=== PATIENT | female | born 1995 | race Caucasian/White ===

== ENCOUNTER 2019-05-18 14:16 | Emergency (ER) | payer OTHER ==
[~2019-05-18] VITALS: Ht 154 cm; Wt 68.1 kg
[2019-05-18] MEDS ORDERED: CLINDAMYCIN 150 MG (CLEOCIN) CAP PO ONE (14:30)
[2019-05-18] MEDS ORDERED: HYDROcodone/APAP 5 MG/325 MG (LORTAB) TAB PO ONE (14:30)
[2019-05-18] MEDS ORDERED: LIDOCAINE 1% INJ 20 ML 20 ML VIAL INJ ONE (14:30)
--- NOTE | 2019-05-18 14:35 | ED Upper Extremity ---
General Chief Complaint: Trauma-Non Activation Stated Complaint: SCREWDRIVER IN R ARM Nursing Triage Note: screw hog driver in R arm Source: patient Exam Limitations: no limitations History of Present Illness Date Seen by Provider: May 18, 2019 Time Seen by Provider: 14:33 Initial Comments To ER with reports of a screwdriver in the right arm. She dropped somehow punctured the skin while at work at [employer] just prior to arrival. She had a te tanus shot within the past 4-5 months. Does report some cold sensation to the pinky and ring finger of the right hand. Location Injury Occurred: [place], [place] Onset: just prior to arrival, yesterday Severity: moderate Pain/Injury Location: right forearm Method of Injury: direct blow Modifying Factors: Worse With Movement Allergies and Home Medications Allergies Coded Allergies: Penicillins (Verified Allergy, Unknown, 05/18/19) Sulfa (Sulfonamide Antibiotics) (Verified Allergy, Unknown, 05/18/19) cefaclor (Verified Allergy, Unknown, 05/18/19) Home Medications Doxycycline Hyclate 100 Mg Tablet, 100 MG PO BID Prescribed by: CHIO DOMINGUEZ on 05/18/19 1458 Hydrocodone/Acetaminophen 1 Each Tablet, 1 TAB PO Q4-6HR Prescribed by: CHIO DOMINGUEZ on 05/18/19 1458 Patient Home Medication List Home Medication List Reviewed: Yes Review of Systems Constitutional: see HPI EENTM: see HPI Respiratory: no symptoms reported Cardiovascular: no symptoms reported Genitourinary: no symptoms reported Musculoskeletal: no symptoms reported Skin: no symptoms reported Psychiatric/Neurological: No Symptoms Reported Past Uxglxwo-Iloadc-Cymfuf Hx Patient Social History Alcohol Use: Denies Use Recreational Drug Use: No Smoking Status: Current Everyday Smoker Type Used: Cigarettes 2nd Hand Smoke Exposure: Yes Recent Foreign Travel: No Contact w/Someone Who Travel: No Recent Hopitalizations: No Immunizations Up To Date Tetanus Booster (TDap): Less than 5yrs Seasonal Allergies Seasonal Allergies: Yes Past Medical History Surgeries: No Respiratory: No Cardiac: No Neurological: No Genitourinary: No Gastrointestinal: No Musculoskeletal: No Endocrine: No HEENT: No Cancer: No Psychosocial: No Integumentary: No Blood Disorders: No Physical Exam Vital Signs Vital Signs - First Documented 05/18/19 14:20 Temp 36.7 Pulse 90 Resp 18 B/P (MAP) 109/86 (94) Capillary Refill : Height, Weight, BMI Height: '" Weight: lbs. oz. kg; BMI Method: General Appearance: WD/WN, no apparent distress Respiratory: no respiratory distress, no accessory muscle use Shoulder: normal inspection, non-tender Elbow/Forearm: Right, pain (to the volar surface ulnar side distal right forearm there is a screwdriver still in place puncturing the skin. Distal to this I'm able to Doppler and ulnar pulse and also able to Doppler a radial pulse. Limited sensation to the ring finger and pinky finger and the ulnar nerve distribution, able to move these fingers however and brisk capillary refill is fingertips.) Wrist: Yes normal inspection, Yes non-tender Hand: normal inspection, non-tender Neurologic/Tendon: normal sensation, normal motor functions Neurologic/Psychiatric: alert, normal mood/affect, oriented x 3 Skin: normal color, warm/dry Progress/Results/Core Measures Results/Orders My Orders Orders - CHIO DOMINGUEZ APRN Forearm, Right, 2 Views (05/18/19 14:26) Clindamycin Capsule (Cleocin Capsule) (05/18/19 14:30) Hydrocodone/Apap 5/325 Tablet (Lortab 5 (05/18/19 14:30) Lidocaine 1% Inj 20 Ml (Xylocaine 1% Inj (05/18/19 14:30) Medications Given in ED Current Medications Medications Dose Ordered Sig/Omar Route Start Time Stop Time Status Last Admin Dose Admin Acetaminophen/ Hydrocodone Bitart 1 tab ONCE ONCE PO 05/18/19 14:30 05/18/19 14:31 DC 05/18/19 14:40 1 TAB Clindamycin HCl 300 mg ONCE ONCE PO 05/18/19 14:30 05/18/19 14:31 DC 05/18/19 14:40 300 MG Lidocaine HCl 2.1 ml ONCE ONCE INJ 05/18/19 14:30 05/18/19 14:31 DC 05/18/19 14:40 2.1 ML Vital Signs/I&O 05/18/19 14:20 Temp 36.7 Pulse 90 Resp 18 B/P (MAP) 109/86 (94) Departure Communication (Admissions) 6190-wound was anesthetized with 1% lidocaine without epinephrine, needle was running parallel to the shaft of the screw hog driver. 3 cc of lidocaine was infiltrated. X-rays were obtained, screw hog driver was removed by simply pulling on it, minimal bleeding from the wound. After the screwdriver was removed both the ulnar and radial arteries were occluded, fist was clenched to extravasate the blood, ulnar artery was released while maintaining the radial artery occluded and there was brisk capillary refill with only arterial flow from the ulnar artery. She is able to fully flex her fist. Pt placed in a [facility] splint Impression Primary Impression: Injury of right ulnar nerve Qualified Codes: S54.01XA - Injury of ulnar nerve at forearm level, right arm, initial encounter Additional Impression: Foreign body in right forearm Qualified Codes: S50.851A - Superficial foreign body of right forearm, initial encounter Disposition: HOME, SELF-CARE Condition: Stable Departure-Patient Inst. Decision time for Depature: 14:56 Referrals: NO,LOCAL PHYSICIAN (PCP) Primary Care Physician PURNIMA CARDONA MD Patient Instructions: NO INSTRUCTIONS GIVEN, Wound Care Add. Discharge Instructions: 1. Return to ER for any concerns 2. Take the antibiotic twice daily as directed. Follow-up with Dr. Cardona from orthopedics, call today for an appointment time.. Pain medication as directed. No use of right arm until released by occupational health or orthopedics. Wear the splint at all times until then, you may take it off to shower allowing water run over the wound gently starting today. However do not soak in water such as hot tub, bath tub, swimming pool. All discharge instructions reviewed with patient and/or family. Voiced understanding. Scripts Doxycycline Hyclate (Doxycycline Hyclate) 100 Mg Tablet 100 MG PO BID, #14 TAB 0 Refills Prov: CHIO DOMINGUEZ APRN 05/18/19 Hydrocodone/Acetaminophen (Ponderosa 5-325 Tablet) 1 Each Tablet 1 TAB PO Q4-6HR for Pain MDD 10 TABS for 7 Days, #14 TAB Prov: CHIO DOMINGUEZ APRN 05/18/19 CHIO DOMINGUEZ APRN May 18, 2019 14:35
--- NOTE | 2019-05-18 14:56 | Diagnostic Imaging Report ---
INDICATION: Right forearm injury. EXAM: AP and lateral views of the right forearm were obtained at 2:38 PM. FINDINGS: There is no acute fracture or acute bone abnormality. There is a metallic foreign body in the soft tissues of the distal forearm, with the tip adjacent to the ulna, with no associated fracture. IMPRESSION: No acute fracture visualized. Metallic foreign body compatible with screwdriver in the distal soft tissues of the forearm. Dictated by: Dictated on workstation # [id number]
[2019-05-18] MEDS ORDERED: DOXY100T2 PO (14:58)
[2019-05-18] MEDS ORDERED: HYDR-4226 PO (14:58)
[2019-05-18 15:11] VITALS: BP 109/86
== END 2019-05-18 15:11 | disposition home or self-care (01) ==
LOC: ER 14:19
DX: S54.01XA Injury of ulnar nerve at forearm level, right arm, initial encounter (principal); S51.841A Puncture wound with foreign body of right forearm, initial encounter; F17.210 Nicotine dependence, cigarettes, uncomplicated; Z88.0 Allergy status to penicillin; Z88.2 Allergy status to sulfonamides; Z88.1 Allergy status to other antibiotic agents; W27.0XXA Contact with workbench tool, initial encounter; Y92.59 Other trade areas as the place of occurrence of the external cause
CPT/HCPCS: 73090

== ENCOUNTER 2019-12-06 09:17 | Emergency (ER) | payer SELFPAY ==
[~2019-12-06] VITALS: Ht 154.9 cm; Wt 73.4 kg
[~2019-12-06 09:17] MED LIST: DOXY100T2 PO; HYDR-4226 PO
--- OUTSIDE RECORDS SUMMARY | 2019-12-06 09:36 | XMS REPORT | Continuity of Care Document ---
Author Organization Unknown Address Unknown Phone Unavailable Allergies Active Description Code Type Severity Reaction Onset Reported/Identified Relationship to Patient Clinical Status Yes cefaclor [id number] Drug Allergy Unknown N/A 05/18/2019 Yes Penicillins [id number] Drug Aller gy Unknown N/A 05/18/2019 Yes Sulfa (Sulfonamide Antibiotics) [id number] Drug Allergy Unknown N/A 019 Medications There is no data. Problems Date Dx Coded Attending Type Code Diagnosis Diagnosed By 05/22/2019 CHIO DOMINGUEZ APRN Ot F17.210 NICOTINE DEPENDENCE, CIGARETTES, UNCOMPL 05/22/2019 CHIO DOMINGUEZ APRN Ot M79.601 PAIN IN RIGHT ARM 05/22/2019 CHIO DOMINGUEZ APRN Ot S51.841A PUNCTURE WOUND W FOREIGN BODY OF RIGHT F 05/22/2019 CHIO DOMINGUEZ APRN Ot S54.01XA INJURY OF ULNAR NERVE AT FOREARM LEVEL, 05/22/2019 CHIO DOMINGUEZ APRN Ot W27.0XXA CONTACT WITH [email or web address] TOOL, INITIAL ENC 05/22/2019 CHIO DOMINGUEZ APRN Ot Y92.[address] 05/22/2019 CHIO DOMINGUEZ APRN Ot Z88 .0 ALLERGY STATUS TO PENICILLIN 05/22/2019 CHIO DOMINGUEZ APRN Ot Z88 .1 ALLERGY STATUS TO OTHER ANTIBIOTIC AGENT 05/22/2019 CHIO DOMINGUEZ APRN Ot Z88 .2 ALLERGY STATUS TO SULFONAMIDES STATUS Procedures There is no data. Results There is no data. Encounters ACCT No. Visit Date/Time Discharge Status Pt. Type Provider Facility Loc./Unit Complaint [id number] 05/18/2019 14:19:00 019 15:11:00 DIS Outpatient CHIO DOMINGUEZ APRN Via [facility] ER SCREWDRIVER IN R ARM
[2019-12-06] MEDS ORDERED: HYDR-700 PO (10:33)
[2019-12-06] MEDS ORDERED: PRD20T PO (10:33)
--- NOTE | 2019-12-06 10:33 | ED Integumentary General ---
General Chief Complaint: Skin/Wound Problems Stated Complaint: RASH Nursing Triage Note: AMB TO ROOM C/O RASH FOR 1 WEEK RASH IS ITCHES AND DU. NOTICED AFTER SHE CHANGE HER LAUNDRY SOAP Source: patient Exam Limitations: no limitations History of Present Illness Date Seen by Provider: December 06, 2019 Time Seen by Provider: 10:30 Initial Comments To ER with an itchy rash to the upper arms and chest for about a week. She switched to a new laundry soap at the onset of this but has switched back about 4 days ago, the rash persists. Timing/Duration: just prior to arrival Severity: moderate Location: torso Possible Cause: exposure to allergen Associated Symptoms: rash Allergies and Home Medications Allergies Coded Allergies: Penicillins (Verified Allergy, Unknown, 05/18/19) Sulfa (Sulfonamide Antibiotics) (Verified Allergy, Unknown, 05/18/19) cefaclor (Verified Allergy, Unknown, 05/18/19) Home Medications Doxycycline Hyclate 100 Mg Tablet, 100 MG PO BID Prescribed by: CHIO DOMINGUEZ on 05/18/19 1458 Hydrocodone/Acetaminophen 1 Each Tablet, 1 TAB PO Q4-6HR Prescribed by: CHIO DOMINGUEZ on 05/18/19 1458 Patient Home Medication List Home Medication List Reviewed: Yes Review of Systems Review of Systems Constitutional: see HPI EENTM: see HPI Respiratory: no symptoms reported Cardiovascular: no symptoms reported Genitourinary: no symptoms reported Musculoskeletal: no symptoms reported Skin: see HPI, pruritus, rash Psychiatric/Neurological: No Symptoms Reported Endocrine: No Symptoms Reported Past Rcovagt-Uqqank-Lvwtjt Hx Patient Social History Alcohol Use: Denies Use Recreational Drug Use: No Smoking Status: Current Everyday Smoker Type Used: Cigarettes 2nd Hand Smoke Exposure: Yes Recent Foreign Travel: No Contact w/Someone Who Travel: No Recent Infectious Disease Expo: No Recent Hopitalizations: No Immunizations Up To Date Tetanus Booster (TDap): Less than 5yrs Seasonal Allergies Seasonal Allergies: Yes Past Medical History Surgeries: No Respiratory: No Cardiac: No Neurological: No Last Menstrual Period: Nov 22, 2019 Genitourinary: No Gastrointestinal: No Musculoskeletal: No Endocrine: No HEENT: No Cancer: No Psychosocial: No Integumentary: No Blood Disorders: No Physical Exam Vital Signs Vital Signs - First Documented 12/06/19 09:20 Temp 36.9 Pulse 90 Resp 18 B/P (MAP) 116/72 (87) Pulse Ox 98 O2 Delivery Room Air Capillary Refill : Less Than 3 Seconds General Appearance: WD/WN, no apparent distress HEENT: PERRL/EOMI, normal ENT inspection Neck: non-tender, full range of motion Respiratory: no respiratory distress, no accessory muscle use Neurologic/Psychiatric: alert, normal mood/affect, oriented x 3 Skin: normal color, warm/dry Skin Problem Location: other (erythematous maculopapular rash to the upper chest) Skin Problem Character: abscess Progress/Results/Core Measures Results/Orders Vital Signs/I&O 12/06/19 09:20 Temp 36.9 Pulse 90 Resp 18 B/P (MAP) 116/72 (87) Pulse Ox 98 O2 Delivery Room Air Blood Pressure Mean: 87 Departure Impression Primary Impression: Rash and nonspecific skin eruption Disposition: 01 HOME, SELF-CARE Condition: Stable Departure-Patient Inst. Decision time for Depature: 10:32 Referrals: NO,LOCAL PHYSICIAN (PCP/Family) Primary Care Physician Patient Instructions: Skin Rash (DC) Add. Discharge Instructions: 1. Steroids as directed 2. Follow-up with your doctor next week 3. All discharge instructions reviewed with patient and/or family. Voiced understanding. Scripts Hydroxyzine HCl (Hydroxyzine HCl) 25 Mg Tablet 25 MG PO Q4H PRN for ITCHING, #14 TAB Prov: CHIO DOMINGUEZ APRN 12/06/19 Prednisone (Prednisone) 20 Mg Tab 40 MG PO DAILY, #8 TAB 0 Refills Prov: CHIO DOMINGUEZ APRN 12/06/19 CHIO DOMINGUEZ APRN December 06, 2019 10:33
[2019-12-06 10:35] VITALS: BP 116/72
== END 2019-12-06 10:35 | disposition home or self-care (01) ==
LOC: EDUNIT# 09:17 → ER 09:19
DX: R21 Rash and other nonspecific skin eruption (principal); F17.210 Nicotine dependence, cigarettes, uncomplicated; Z88.0 Allergy status to penicillin; Z88.2 Allergy status to sulfonamides; Z88.1 Allergy status to other antibiotic agents
CPT/HCPCS: 99282

== ENCOUNTER 2020-02-21 10:05 | Emergency (ER) | payer SELFPAY ==
[~2020-02-21 10:05] MED LIST changes: +HYDR-700 PO; +PRD20T PO
--- OUTSIDE RECORDS SUMMARY | 2020-02-21 10:46 | XMS REPORT | Continuity of Care Document ---
Author Organization Unknown Address Unknown Phone Unavailable Allergies Active Description Code Type Severity Reaction Onset Reported/Identified Relationship to Patient Clinical Status Yes cefaclor [id number] Drug Allergy Unknown N/A 05/18/2019 Yes Penicillins [id number] Drug Aller gy Unknown N/A 05/18/2019 Yes Sulfa (Sulfonamide Antibiotics) [id number] 0491 Drug Allergy Unknown N/A 019 Medications There is no data. Problems Date Dx Coded Attending Type Code Diagnosis Diagnosed By 05/18/2019 CHIO DOMINGUEZ APRN Ot F17.210 NICOTINE DEPENDENCE, CIGARETTES, UNCOMPL 05/18/2019 CHIO DOMINGUEZ APRN Ot M79.601 PAIN IN RIGHT ARM 05/18/2019 CHIO DOMINGUEZ APRN Ot S51.841A PUNCTURE WOUND W FOREIGN BODY OF RIGHT F 05/18/2019 CHIO DOMINGUEZ APRN Ot S54.01XA INJURY OF ULNAR NERVE AT FOREARM LEVEL, 05/18/2019 CHIO DOMINGUEZ APRN Ot W27.0XXA CONTACT WITH [employer], INITIAL ENC 05/18/2019 CHIO DOMINGUEZ APRN Ot Y92.[address] 05/18/2019 CHIO DOMINGUEZ APRN Ot Z88 .0 ALLERGY STATUS TO PENICILLIN 05/18/2019 CHIO DOMINGUEZ APRN Ot Z88 .1 ALLERGY STATUS TO OTHER ANTIBIOTIC AGENT 05/18/2019 CHIO DOMINGUEZ APRN Ot Z88 .2 ALLERGY STATUS TO SULFONAMIDES STATUS 05/22/2019 CHIO DOMINGUEZ APRN Ot F17.210 NICOTINE DEPENDENCE, CIGARETTES, UNCOMPL 05/22/2019 CHIO DOMINGUEZ APRN Ot M79.601 PAIN IN RIGHT ARM 05/22/2019 CHIO DOMINGUEZ APRN Ot S51.841A PUNCTURE WOUND W FOREIGN BODY OF RIGHT F 05/22/2019 CHIO DOMINGUEZ APRN Ot S54.01XA INJURY OF ULNAR NERVE AT FOREARM LEVEL, 05/22/2019 CHIO DOMINGUEZ APRN Ot W27.0XXA CONTACT WITH [employer] TOOL, INITIAL ENC 05/22/2019 CHIO DOMINGUEZ APRN Ot Y92.[address] 05/22/2019 CHIO DOMINGUEZ APRN Ot Z88 .0 ALLERGY STATUS TO PENICILLIN 05/22/2019 CHIO DOMINGUEZ APRN Ot Z88 .1 ALLERGY STATUS TO OTHER ANTIBIOTIC AGENT 05/22/2019 CHIO DOMINGUEZ APRN Ot Z88 .2 ALLERGY STATUS TO SULFONAMIDES STATUS 12/08/2019 CHIO DOMINGUEZ APRN Ot F17.210 NICOTINE DEPENDENCE, CIGARETTES, UNCOMPL 12/08/2019 CHIO DOMINGUEZ APRN Ot R21 RASH AND OTHER NONSPECIFIC SKIN ERUPTION 12/08/2019 CHIO DOMINGUEZ APRN Ot Z88 .0 ALLERGY STATUS TO PENICILLIN 12/08/2019 CHIO DOMINGUEZ APRN Ot Z88 .1 ALLERGY STATUS TO OTHER ANTIBIOTIC AGENT 12/08/2019 CHIO DOMINGUEZ APRN Ot Z88 .2 ALLERGY STATUS TO SULFONAMIDES STATUS Procedures There is no data. Results There is no data. Encounters ACCT No. Visit Date/Time Discharge Status Pt. Type Provider Facility Loc./Unit Complaint [id number] 12/06/2019 09:19:00 020 10:35:00 DIS Outpatient CHIO DOMINGUEZ APRN Via [facility] ER RASH [id number] 05/18/2019 14:19:00 019 15:11:00 DIS Emergency CHIO DOMINGUEZ APRN Via [facility] ER SCREWDRIVER IN R ARM
== END 2020-02-21 10:29 | disposition left against medical advice (07) ==
LOC: EDUNIT# 10:05 → ER 10:06
DX: R50.9 Fever, unspecified (principal); R05 Cough

== ENCOUNTER 2020-11-19 16:06 | Emergency (ER) | payer SELFPAY ==
[~2020-11-19] VITALS: Ht 157 cm; Wt 81.0 kg
[2020-11-19] MEDS ORDERED: NS IV 500 ML 500 ML ONE (16:47)
--- NOTE | 2020-11-19 16:48 | ED Headache ---
General Chief Complaint: Head/Cervical Problems Stated Complaint: MIGRAINE Nursing Triage Note: PT PRESENTS TO ED FOR MIGRAINE X'S 2 DAYS. PT REPORTS THAT IT GETS WORSE WITH NOISE AND HAS NOTICED SOME FLOATERS. PT REPORTS HX OF MIGRAINE ISSUES. Nursing Sepsis Screen: No Definite Risk Source: patient Exam Limitations: no limitations History of Present Illness Date Seen by Provider: Nov 19, 2020 Time Seen by Provider: 16:42 Initial Comments Patient is a 25-year-old female who presents to the emergency room by private vehicle tonight with a chief complaint of headache. Patient states she has had gradual onset of headache over the last 2 days. She states the headache is more severe than usual, she has not had a headache this bad in a couple of years. She states she had "black spots" in her visual ramos yesterday and last night. She states these have mostly resolved. She endorses nausea with a headache. She states she feels a little confused and is having a hard time getting the right words out when she wants to speak. She denies any unilateral numbness weakness or tingling of any of her extremities. She denies any recent fevers, chills, cough or congestion. No other GI or complaints. She states she tried to take some Tylenol this morning, 2 extra strength tablets but she did not have any relief of symptoms and decided to come to the emergency room for further treatment. She just ended her menstrual cycle. She states there is no way she could be . All other review of systems reviewed and negative except as stated above. Timing/Duration: 24 hours Severity/Quality: moderate, constant, pressure Location: global Prior Headaches/Recent Trauma: occasional headaches Modifying Factors: worse with exposure to light Associated Symptoms: confusion, nausea/vomiting Allergies and Home Medications Allergies Coded Allergies: Penicillins (Verified Allergy, Unknown, 05/18/19) Sulfa (Sulfonamide Antibiotics) (Verified Allergy, Unknown, 05/18/19) cefaclor (Verified Allergy, Unknown, 05/18/19) Home Medications Doxycycline Hyclate 100 Mg Tablet, 100 MG PO BID Prescribed by: CHIO DOMINGUEZ on 05/18/19 1458 Hydrocodone/Acetaminophen 1 Each Tablet, 1 TAB PO Q4-6HR Prescribed by: CHIO DOMINGUEZ on 05/18/19 1458 Hydroxyzine HCl 25 Mg Tablet, 25 MG PO Q4H PRN for ITCHING Prescribed by: CHIO DOMINGUEZ on 12/06/19 1033 Prednisone 20 Mg Tab, 40 MG PO DAILY Prescribed by: CHIO DOMINGUEZ on 12/06/19 1033 Patient Home Medication List Home Medication List Reviewed: Yes Review of Systems Review of Systems Constitutional: see HPI Eyes: Photophobia Ears, Nose, Mouth, Throat: no symptoms reported Respiratory: no symptoms reported Cardiovascular: no symptoms reported Gastrointestinal: nausea Genitourinary: no symptoms reported Musculoskeletal: no symptoms reported Psychiatric/Neurological: Headache All Other Systems Reviewed Negative Unless Noted: Yes Past Uvsjdcp-Yjqaij-Mkicso Hx Patient Social History Alcohol Use: Denies Use Smoking Status: Former Smoker Type Used: Cigarettes 2nd Hand Smoke Exposure: Yes Recent Infectious Disease Expo: No Recent Hopitalizations: No Immunizations Up To Date Tetanus Booster (TDap): Less than 5yrs Seasonal Allergies Seasonal Allergies: Yes Past Medical History Surgeries: No Respiratory: No Cardiac: No Neurological: No Genitourinary: No Gastrointestinal: No Musculoskeletal: No Endocrine: No HEENT: No Cancer: No Psychosocial: No Integumentary: No Blood Disorders: No Physical Exam Vital Signs Vital Signs - First Documented 11/19/20 16:25 Temp 36.2 Pulse 85 Resp 16 B/P (MAP) 111/73 (86) O2 Delivery Room Air Capillary Refill : Less Than 3 Seconds Height, Weight, BMI Height: '" Weight: lbs. oz. kg; 32.00 BMI Method: General Appearance: WD/WN HEENT: PERRL/EOMI, normal ENT inspection, TMs normal Neck: full range of motion, supple Cardiovascular: regular rate, rhythm Respiratory: lungs clear, normal breath sounds, no respiratory distress, no ac cessory muscle use Gastrointestinal: non tender, soft Back: normal inspection Extremities: non-tender, normal inspection, no pedal edema, no calf tenderness Psychiatric: alert, oriented x 3, depressed affect Crainal Nerves: normal hearing, normal speech, PERRL Coordination/Gait: normal finger to nose, negative Romberg's sign Motor/Sensory: no motor deficit, no sensory deficit, no pronator drift Skin: normal color, warm/dry Progress/Results/Core Measures Results/Orders My Orders Orders - JO ROGER MD Ed Iv/Invasive Line Start (11/19/20 16:50) Ketorolac Injection (Toradol Injection) (11/19/20 17:00) Ns Iv 500 Ml (Sodium Chloride 0.9%) (11/19/20 16:47) Orphenadrine Inj (Ed Only) (Norflex Inje (11/19/20 17:30) Medications Given in ED Current Medications Medications Dose Ordered Sig/Omar Route Start Time Stop Time Status Last Admin Dose Admin Ketorolac Tromethamine 30 mg ONCE ONCE IVP 11/19/20 17:00 11/19/20 17:01 DC 11/19/20 17:14 30 MG Orphenadrine Citrate 30 mg ONCE ONCE IV 11/19/20 17:30 11/19/20 17:31 DC 11/19/20 17:24 30 MG Sodium Chloride 500 ml @ [facility]-MED ONCE .ROUTE 11/19/20 16:47 11/19/20 16:55 DC 11/19/20 17:18 500 MLS/HR Vital Signs/I&O 11/19/20 16:25 Temp 36.2 Pulse 85 Resp 16 B/P (MAP) 111/73 (86) O2 Delivery Room Air Blood Pressure Mean: 86 Progress Progress Note : Time: 17:56 Progress Note Patient states she still has mild headache. She is having some improvement in symptoms. I have recommended that the patient take hcci-mxb-tfomxae naproxen or Aleve, 2 pills with food twice daily as needed for headache. I have encouraged her to drink plenty of fluids to stay well-hydrated. She verbalized understanding. All questions are sought and answered. Patient is stable for discharge. Departure Impression Primary Impression: Tension type headache Qualified Codes: G44.209 - Tension-type headache, unspecified, not intractable Disposition: 01 HOME, SELF-CARE Condition: Stable Departure-Patient Inst. Decision time for Depature: 17:58 Referrals: [facility] NO,LOCAL PHYSICIAN (PCP) Primary Care Physician Patient Instructions: Headache, Adult (DC) Add. Discharge Instructions: Drink plenty of fluids to stay well-hydrated. Take ckjf-ngi-eafxnym Aleve/naproxen, 2 tablets which is 500 mg, every 12 hours as needed for pain. Always take this medication with food. Follow-up with a primary care physician. Return to the emergency room for any worsening headache especially with nausea, vomiting, fever or any other emergent concerning symptoms. JO ROGER MD Nov 19, 2020 16:48
[2020-11-19] MEDS ORDERED: ORPHENADRINE 60 MG/2 ML (NORFLEX) AMP (ED ONLY) IM ONE (17:00)
[2020-11-19] MEDS ORDERED: KETOROLAC 30 MG/ML VIAL IVP ONE (17:00)
[2020-11-19] MEDS ORDERED: ORPHENADRINE 60 MG/2 ML (NORFLEX) AMP (ED ONLY) IV ONE (17:30)
[2020-11-19 18:14] VITALS: BP 108/68
== END 2020-11-19 18:14 | disposition home or self-care (01) ==
LOC: EDUNIT# 16:06 → ER 16:08
DX: G44.209 Tension-type headache, unspecified, not intractable (principal); Z88.0 Allergy status to penicillin; Z88.2 Allergy status to sulfonamides; Z88.1 Allergy status to other antibiotic agents; Z87.891 Personal history of nicotine dependence; Z79.52 Long term (current) use of systemic steroids

== ENCOUNTER 2021-05-18 18:40 | Emergency (ER) | payer SELFPAY ==
[~2021-05-18] VITALS: Ht 154.9 cm; Wt 77.4 kg
[2021-05-18 19:16] LABS: BILIRUBIN,URINE NEGATIVE (NEGATIVE); CLARITY,URINE CLOUDY; COLOR,URINE YELLOW; GLUCOSE, URINE (UA) NEGATIVE (NEGATIVE); KETONES,URINE NEGATIVE (NEGATIVE); LEUKOCYTE ESTERASE ,URINE NEGATIVE (NEGATIVE); NITRITE,URINE NEGATIVE (NEGATIVE); PH,URINE 7.5 (5-9); PROTEIN,URINE NEGATIVE (NEGATIVE)
[2021-05-18 19:23] LABS: AMORPHOUS SEDIMENT,UR MOD AMOR PHOSPHATE /LPF; BACTERIA,URINE FEW /HPF
--- NOTE | 2021-05-18 19:58 | ED Respiratory ---
General Chief Complaint: COVID19 Suspect/Confirmed Stated Complaint: COUGH/CONGESTION/SOA Nursing Triage Note: Pt ambulatory into ER with complaints of Cough/SOA w/ exertion/Headache/Diarrhea/Dark Urine. Pt states that Cough/SOA/and Headache have been going on for 5 days. Other symptoms x3 days but are improving. Pt denies vaccine, and states that she doesn't know that she has been around anyone with covid. (SONAL MCKEON) History of Present Illness Date Seen by Provider: May 18, 2021 Time Seen by Provider: 19:00 Initial Comments 25 year old presents with sinus congestion, productive cough, and myalgias. No fevers. Mild nausea and vomited last night, mainly mucus. Diarrhea 2 days ago. Has not received her COVID-19 or Influenza vaccine, no previous history of + COVID. No family members with similar symptoms. Severity: mild Prior Episodes/Possible Cause: no prior episodes Associated Symptoms: No chest pain/soreness; cough; No dizziness, No earache, No facial pain, No fever/chills; muscle aches, nasal congestion, nasal drainage; No shortness of breath, No sinus infection, No sore throat (SONAL MCKEON) Allergies and Home Medications Allergies Coded Allergies: Penicillins (Verified Allergy, Unknown, 05/18/19) Sulfa (Sulfonamide Antibiotics) (Verified Allergy, Unknown, 05/18/19) cefaclor (Verified Allergy, Unknown, 05/18/19) Patient Home Medication List Home Medication List Reviewed: Yes (SONAL MCKEON) Doxycycline Hyclate (Doxycycline Hyclate) 100 Mg Tablet, 100 MG PO BID Prescribed by: CHIO DOMINGUEZ on 05/18/19 1458 Hydrocodone/Acetaminophen (Hydrocodone/Acetaminophen 5 MG/325 MG TAB) 1 Each Tablet, 1 TAB PO Q4-6HR Prescribed by: CHIO DOMINGUEZ on 05/18/19 1458 Hydroxyzine HCl (Hydroxyzine HCl) 25 Mg Tablet, 25 MG PO Q4H PRN for ITCHING Prescribed by: CHIO DOMINGUEZ on 12/06/19 1033 Prednisone (Prednisone) 20 Mg Tab, 40 MG PO DAILY Prescribed by: CHIO DOMINGUEZ on 12/06/19 1033 Review of Systems Review of Systems Constitutional: no symptoms reported, see HPI; No fever EENTM: see HPI, nose congestion; No throat pain Respiratory: see HPI, cough, phlegm Cardiovascular: no symptoms reported, see HPI Gastrointestinal: no symptoms reported, see HPI; No abdominal pain Genitourinary: no symptoms reported, see HPI : No (SONAL MCKEON) All Other Systems Reviewed Negative Unless Noted: Yes (SONAL MCKEON) Past Ccdhluo-Gboqsw-Lzrowm Hx Patient Social History Tobacco Use?: Yes Tobacco type used: Cigarettes Smoking Status: Current Everyday Smoker Use of E-Cig and/or Vaping dev: No Substance use?: No Alcohol Use?: No Pt feels they are or have been: No (SONAL MCKEON) Immunizations Up To Date Tetanus Booster (TDap): Less than 5yrs Influenza Vaccine Up-to-Date: No; Not Current (SONAL MCKEON) Seasonal Allergies Seasonal Allergies: Yes (SONAL MCKEON) Past Medical History Surgeries: No Respiratory: No Cardiac: No Neurological: No Genitourinary: No Gastrointestinal: No Musculoskeletal: No Endocrine: No HEENT: No Cancer: No Psychosocial: No Integumentary: No Blood Disorders: No (SONAL MCKEON) Family Medical History Reviewed Nursing Family Hx (SONAL MCKEON) Physical Exam Vital Signs - First Documented 05/18/21 18:55 Temp 36.9 Pulse 86 Resp 20 B/P (MAP) 130/94 (106) Pulse Ox 99 O2 Delivery Room Air (RADHA,BELKIS K DO) Capillary Refill : Less Than 3 Seconds (SONAL MCKEON) Height: '" Weight: lbs. oz. kg; 32.00 BMI Method: General Appearance: WD/WN, no apparent distress Eyes: Bilateral Eye Normal Inspection, Bilateral Eye PERRL, Bilateral Eye EOMI HEENT: PERRL/EOMI, normal ENT inspection, TMs normal, pharynx normal, other (no tenderness over sinuses) Neck: full range of motion, supple, normal inspection, lymphadenopathy (R), lymphadenopathy (L) Respiratory: chest non-tender, lungs clear, normal breath sounds Cardiovascular: normal peripheral pulses, regular rate, rhythm Gastrointestinal: normal bowel sounds, non tender, soft Neurologic/Psychiatric: no motor/sensory deficits, alert, normal mood/affect, oriented x 3 Skin: normal color, warm/dry (SONAL MCKEON) Progress/Results/Core Measures Suspected Sepsis SIRS Temperature: Pulse: 86 Respiratory Rate: 20 Blood Pressure 130 /94 Mean: 106 (SONAL MCKEON) Results/Orders Lab Results Laboratory Tests Test 05/18/21 19:00 05/18/21 19:02 Range/Units Urine Color YELLOW Urine Clarity CLOUDY Urine pH 7.5 5-9 Urine Specific [place] 1.020 1.016-1.022 Urine Protein NEGATIVE NEGATIVE Urine Glucose (UA) NEGATIVE NEGATIVE Urine Ketones NEGATIVE NEGATIVE Urine Nitrite NEGATIVE NEGATIVE Urine Bilirubin NEGATIVE NEGATIVE Urine Urobilinogen 0.2 < = 1.0 MG/DL Urine Leukocyte Esterase NEGATIVE NEGATIVE Urine RBC (Auto) NEGATIVE NEGATIVE Urine RBC NONE /HPF Urine WBC NONE /HPF Urine Squamous Epithelial Cells 10-25 H /HPF Urine Crystals PRESENT H /LPF Urine Amorphous Sediment MOD JOSE PHOSPHATE H /LPF Urine Bacteria FEW H /HPF Urine Casts NONE /LPF Urine Mucus SMALL H /LPF Urine Culture Indicated NO Influenza Type A Antigen NEGATIVE NEGATIVE Influenza Type B Antigen NEGATIVE NEGATIVE (BELKIS GARCIA DO) Vital Signs/I&O 05/18/21 05/18/21 18:55 20:03 Temp 36.9 Pulse 86 86 Resp 20 18 B/P (MAP) 130/94 (106) 104/92 Pulse Ox 99 96 O2 Delivery Room Air Room Air (BELKIS GARCIA DO) Vital Signs/I&O Capillary Refill : Less Than 3 Seconds (SONAL MCKEON) Blood Pressure Mean: 106 Departure Impression Primary Impression: Person under investigation for COVID-19 Additional Impressions: Upper respiratory infection Qualified Codes: J06.9 - Acute upper respiratory infection, unspecified Sinus congestion Disposition: 01 HOME, SELF-CARE Condition: Improved Departure-Patient Inst. Decision time for Depature: 19:45 (SONAL MCKEON) Referrals: [facility] (PCP/Family) Primary Care Physician Patient Instructions: COVID-19 (DC), Viral Upper Respiratory Infection, Adult (DC) Add. Discharge Instructions: Use a Fiona Pot or Sinus rinse, every 2-3 hours for sinus congestion. Take Muccinex, 1 tablet every 12 hours, with a full glass of water. Use Afrin Nasal [place] for 3-4 days, then discontinue. Alternate between Tylenol 650 mg and ibuprofen 600 mg every 4 hours for discomfort or fever. Call your primary care provider at [facility] if symptoms are not improving or worsen. Increase water in diet. We will call you, with COVID results in 24-48 hours. If COVID positive, start Aspirin 81 mg daily, ImmuVitamin with C, D, and Zinc. Return to the emergency department for new, urgent healthcare needs. All discharge instructions reviewed with patient and/or family. Voiced understanding. Work/School Note: Work Release Form Date Seen in the Emergency Department: May 18, 2021 Other Restrictions Listed Below: May return to work pending lab results. ATTENDING PHYSICIAN NOTE: I WAS PHYSICALLY PRESENT ER PHYSICIAN WHEN THIS PATIENT WAS IN ER, BUT I WAS NOT INVOLVED IN DECISION MAKING OR ANY CARE OF THIS PATIENT. (BELKIS GARCIA DO) SONAL MCKEON May 18, 2021 19:58 BELKIS GARCIA DO May 18, 2021 22:51
[2021-05-18 20:03] VITALS: BP 104/92
== END 2021-05-18 19:59 | disposition home or self-care (01) ==
LOC: EDUNIT# 18:40 → ER 18:41
DX: J06.9 Acute upper respiratory infection, unspecified (principal); R09.81 Nasal congestion; F17.210 Nicotine dependence, cigarettes, uncomplicated; Z20.822 Contact with and (suspected) exposure to COVID-19; Z79.52 Long term (current) use of systemic steroids
CPT/HCPCS: 81000; 84703; 87635; 87804; 99283